=== PATIENT | female | born 1995 | race Caucasian/White ===

== ENCOUNTER 2016-08-19 17:58 | Inpatient (IN) | payer OTHER ==
--- NOTE | ~2016-08-19 | PN ---
Unit #: [id number] #: [id number] Patient: GE DOYLE [id number] [facility] [address] [place] [address] [id number] MR#: [id number] NAME: GE DOYLE ROOM: P116 Age: 21 Sex: F Admission Date: 08/19/2016 : 1995 Attending Physician: Connor Pendleton M.D. Admitting Physician: Connor Pendleton M.D. Primary Care Physician: Primary Care Physician Lupis JAUREGUI NOTES DATE 08/21/2016 DISCUSSION Ms. Doyle is a 21-year-old white female who was seen today and chart was reviewed and case was discussed with the staff. She has been anxious, withdrawn and at times has been seen to be hypermanic episodes and has been showing significant mood swings and instability and has also been noticed to be flirting with other male patients. Meanwhile, she has been taking the medications and tolerating them fairly well with no reported side effects. MENTAL STATUS EXAMINATION Young white female who was casually dressed with fair personal hygiene, appears to be in no acute distress or discomfort. She was awake and alert on interaction with intact orientation. Her mood was anxious with congruent affect. Her speech was fluent and tangent. Her thought processes were disorganized with some looseness of associations and flight of ideas, paranoid ideations and delusional behavior. Her insight and judgement remains significantly impaired. TREATMENT PLAN 1. We will continue her on her current medications and treatment protocol. We will monitor her response to the medication and make further adjustments as needed. 2. We will continue to follow up. Dictated by... Phong Wheeler/raad TD: 08/23/2016 01:24 JOB #: [id number] Unit #: [id number] #: [id number] Patient: GE DOYLE SHANIA NOTES Page 1 of 1 X Connor Pendleton MD PROGRESS NOTE
--- NOTE | ~2016-08-19 | HP ---
Unit #: [id number] #: [id number] Patient: MARY GRACE [id number] [place] [address] [id number] MR#: [id number] NAME: KALEY BRODY ROOM: P116 Age: 21 Sex: F Admission Date: 08/19/2016 : 1995 Attending Physician: Connor Pendleton M.D. Admitting Physician: Connor Pendleton M.D. Primary Care Physician: Primary Care Physician No HISTORY AND PHYSICAL HISTORY OF PRESENT ILLNESS Kaley is a 21 year old admitted to [address] [place] [address] reporting auditory hallucinations. She was admitted to [facility] psychiatric unit a week ago after overdosing on muscle relaxers. She was released on 08/16/16. PAST MEDICAL HISTORY Asthma. PAST SURGICAL HISTORY Nothing reported. ALLERGIES Penicillin, Motrin. SOCIAL HISTORY She denies cigarettes and alcohol. 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 FAMILY HISTORY Medically noncontributory. REVIEW OF SYSTEMS CONSTITUTIONAL: No fever or chills. HEENT: Denies any sore throat, ear pain or runny nose. CARDIOVASCULAR: Denies chest pain, irregular heart rhythm or palpitations. CHEST: Denies shortness of breath or cough. No hemoptysis. GASTROINTESTINAL: Denies nausea, vomiting, diarrhea or chronic constipation. ENDOCRINE: Denies history of increased thirst or urination. No recent significant weight loss or gain. GENITOURINARY: Denies dysuria, frequency, or hematuria. SKIN: Denies any rashes. HEMATOLOGIC: Denies history of increased bleeding or bruising. MUSCULOSKELETAL: Denies any hot, swollen joints. No generalized muscle pain. NEUROLOGIC: Denies problems with vision or speech. No frequent, severe headaches. No numbness, tingling or weakness in any extremities. Denies loss of bladder or bowel control. CURRENT MEDICATIONS 1. Risperdal 1 mg q.h.s. 2. Celexa 20 mg daily. 3. Desyrel 100 mg q.h.s. Unit #: [id number] #: [id number] Patient: MARY GRACE 4. Proventil inhaler p.r.n. 5. Vistaril p.r.n. 6. Milk of Magnesia p.r.n. 7. Maalox p.r.n. 8. Tylenol p.r.n. PHYSICAL EXAMINATION GENERAL: Alert, well-nourished, in no apparent distress. VITAL SIGNS: Blood pressure 124/72, heart rate 100, respirations 16, temperature 98.6. WEIGHT: 150. HEIGHT: 4 feet 11 inches. SKIN: Warm and dry without rash or lesion. HEENT: Normocephalic. TMs not viewed. Oral and nasal passages clear. Conjunctivae clear. PERRLA. EOMs intact. NECK: Supple without lymphadenopathy or thyromegaly. HEART: Regular rate and rhythm without murmur. LUNGS: Clear. ABDOMEN: Soft, nontender. : Not done. EXTREMITIES: No evidence of cyanosis, clubbing or edema. Moves all without focal deficit. NEUROLOGICAL: Unable to complete extended exam. She does move all extremities without focal deficit. Hand deck builder is equal and gait is normal. IMPRESSION Psychiatric admission. RECOMMENDATIONS PSYCHIATRIC: Per psychiatrist. MEDICAL: See no contraindications to participate in facility's activities. MEDICAL PROGNOSIS Good. MEDICAL CONDITION Stable. Dictated by... Lizbeth Luke P.A.-C. for Phong Spann/eder TD: 08/20/2016 18:01 JOB #: [id number] Unit #: [id number] #: [id number] Patient: MARY GRACE HISTORY AND PHYSICAL Page 1 of 1 X Lizbeth Luke X HISTORY AND PHYSICAL
--- NOTE | ~2016-08-19 | PN ---
Unit #: [id number] #: [id number] Patient: GE DOYLE [id number] [facility] [address] [place] [address] [id number] I MR#: [id number] NAME: GE DOYLE ROOM: P110 Age: 21 Sex: F Admission Date: 08/19/2016 : 1995 Attending Physician: Connor Pendleton M.D. Admitting Physician: Connor Pendleton M.D. Primary Care Physician: Primary Care Physician Lupis WARD PROGRESS NOTES DATE 08/22/2016 DISCUSSION Ms. Doyle is a 21-year-old white female with mood disorder who was seen today and chart was reviewed and case was discussed with the staff. She has been anxious, withdrawn though has not shown any agitation, irritability or behavioral problems and appears to be somewhat distracted in elated mood with pressure speech and flight of ideas and exhibiting flirtatious behavior with the male peers. MENTAL STATUS EXAMINATION Young white female who was casually dressed with fair personal hygiene, appears to be in no acute distress or discomfort. She was awake and alert on interaction with intact orientation. Her mood was anxious with congruent affect. She denies any suicidal or homicidal ideations. Her insight and judgement remains slightly impaired. TREATMENT PLAN 1. We will continue her on her current medications and treatment protocol. We will monitor her response to the medication and make further adjustments as needed. 2. We will continue to follow up. Dictated by... Phong Wheeler/raad TD: 08/23/2016 21:51 JOB #: [id number] Unit #: [id number] #: [id number] Patient: GE DOYLE PROGRESS NOTES Page 1 of 1 X Connor Pendleton MD X PROGRESS NOTE
--- NOTE | ~2016-08-19 | DS ---
Unit #: [id number] #: [id number] Patient: GE DOYLE [id number] [facility] [address] [place] [address] [id number] I MR#: [id number] NAME: GE DOYLE ROOM: P110 Age: 21 Sex: F Admission Date: 08/19/2016 : 1995 Discharge Date: 08/24/2016 Attending Physician: Connor Pendleton M.D. Primary Care Physician: Primary Care Physician No DISCHARGE SUMMARY IDENTIFYING DATA Ms. Doyle is a 21-year-old white female, who is a resident of [place], [place] and was referred to us from [place], [place]. DISCHARGE DIAGNOSES Psychiatric: Bipolar disorder, most recent episode depressed, recurrent, moderate, with psychosis. Medical: None. Stressors: Moderate psychosocial stressors. HISTORY OF PRESENT ILLNESS Please see initial psychiatric evaluation for details. PAST PSYCHIATRIC HISTORY Please see initial psychiatric evaluation for details. PAST MEDICAL HISTORY Please see initial psychiatric evaluation for details. HOSPITAL COURSE The patient [facility] and was oriented to the hospital environment. Routine p.r.n. medications were initiated, and she was started back on her home medication initially and upon presentation, she was seen to be exhibiting depression and psychosis and Celexa and Risperdal they were initiated; however, she was then seen to be showing significant mood instability with hypomania like episode, pressured speech, flight of ideas, hyperactivity, and flirtatious behavior; however, she was taking the medications regularly and was tolerating them fairly well and was able to show a decent and therapeutic response with improvement in her anxiety and depression, and was denying any suicidal ideations, intent, or plan and no acute psychosis was noted and as such, it was decided that she will be discharged home and will continue treatment on an outpatient basis. DISCHARGE MEDICATIONS Celexa 20 mg in the morning for depression, and Risperdal 1 mg at bedtime for bipolar. DISCHARGE CONDITION Stable. PROGNOSIS Fair. Unit #: [id number] #: [id number] Patient: GE DOYLE Dictated by... Phong Wheeler/shira TD: 08/24/2016 06:58 JOB #: [id number] DISCHARGE SUMMARY Page 1 of 1 X Connor Pendleton MD DISCHARGE SUMMARY
--- NOTE | ~2016-08-19 | PA ---
Unit #: [id number] #: [id number] Patient: GE DOYLE [id number] [facility] [address] [place] [address] [id number] I MR#: [id number] NAME: GE DOYLE ROOM: P116 Age: 21 Sex: F Admission Date: 08/19/2016 : 1995 Date of Assessment: 08/20/2016 Attending Physician: Connor Pendleton M.D. Admitting Physician: Connor Pendleton M.D. PSYCHIATRIC ASSESSMENT DATE OF SERVICE 08/20/2016. IDENTIFYING DATA Ms. Doyle is a 21-year-old white female, who is a resident of [place], [place] and was referred to us from [place], [place]. CHIEF COMPLAINT "I overdosed on 14 muscle relaxers on last ." HISTORY OF PRESENT ILLNESS Ms. Doyle is a 21-year-old white female, who was transferred to us after she presented to the [place] office stating that she overdosed on 14 muscle relaxers on last and was admitted to [facility], released on Tuesday, but stated that she continues to experience thoughts of suicide and she explained this to the staff at [facility], but they released her anyway and that she endorses auditory and visual hallucinations every night for the last year and reports that she can no longer function with these bad thoughts and is seeking the help that she needs to improve her quality of life. She states that her is in the lobby, but he did not comment on the assessment and the patient states that she thinks that all of her family and friends are drifted away from her due to her mental health issues and she spoke with the father about the voices that she hears and he stopped speaking with her altogether. The patient does report increasing depression, anxiety, irritability, restlessness, feelings of hopelessness and helplessness, and suicidal ideations with intent and plan. SUBSTANCE ABUSE HISTORY The patient reports history of experimentation with methamphetamine as a teenager, but denies any current drug abuse. PAST PSYCHIATRIC HISTORY The patient has had a history of inpatient psychiatric hospitalization at [facility] and a facility in [place]. Currently, she is not active in any treatment program, is not seeing a psychiatrist, is not taking any psychotropic medications. PAST MEDICAL HISTORY No acute or chronic medical illnesses. ALLERGIES Penicillin. Unit #: [id number] #: [id number] Patient: GE DOYLE PERSONAL AND SOCIAL HISTORY A 21-year-old white female, who reports that she is , though she describes herself to be homeless and has poor living situation. MENTAL STATUS EXAMINATION Young white female, who was casually dressed with fair personal hygiene, appears to be in no acute distress or discomfort. She was awake and alert on interaction with intact orientation to time, place, and person. Her mood was anxious and depressed with a congruent affect. Her speech was slow and restricted in content. She reports having suicidal ideation, but denies any homicidal ideations. Her insight and judgment remain significantly impaired. DIAGNOSTIC IMPRESSION Psychiatric: Major depressive disorder, recurrent, moderate, with psychosis. Medical: None. Stressors: Moderate psychosocial stressors. TREATMENT PLAN 1. The patient has presented with history of mood disorder and psychosis and has been decompensating with worsening depression, feelings of hopelessness and suicidal ideations and will need inpatient hospitalization for safety and stabilization. We will recommend initiating antidepressant/antipsychotic combination. 2. Supportive therapy was provided to the patient. ESTIMATED LENGTH OF STAY 5 to 7 days. ABILITY TO HELP SELF Limited. WILLINGNESS TO HELP SELF The patient appears to be willing to help self. STRENGTHS 1. Communicative. 2. Cooperative. PROBLEMS 1. Chronic dysphoric symptoms. 2. Poor social support system. DISCHARGE CRITERIA This will be contingent upon the patient's ability to show resolution of her depression and anxiety and her ability to stay safe to herself, particularly after discharge from the hospital. Dictated by... Phong Wheeler/shira TD: 08/20/2016 06:56 JOB #: [id number] Unit #: [id number] #: [id number] Patient: GE DOYLE PSYCHIATRIC ASSESSMENT Page 1 of 1 X Connor Pendleton MD X PSYCHIATRIC ASSESSMENT
[2016-08-20 12:39] LABS: BASOPHIL% 0.8 % (0-2.5); EOSINOPHIL# 0.2 X10e3 (0-0.7); EOSINOPHIL% 3.9 % (0.0-7.0); HEMATOCRIT 36.2 % (35.0-45.0); HEMOGLOBIN 12.1 gm/dL (12.0-16.0); LYMPHOCYTE% 37.8 % (17.0-45.0); MEAN CELL VOLUME 86.5 FL (83-96); MEAN CORPUSCULAR HEMOGLOBIN 28.9 PG (28-34); MEAN CORPUSCULAR HGB CONC 33.4 g/dL (30-36); MEAN PLATELET VOLUME 8.3 FL (6.5-11.5); MONOCYTE# 0.5 X10e3 (0-1.0); MONOCYTE% 8.6 % (3.0-12.0); NEUTROPHIL# 2.6 X10e3 (1.5-7.1); NEUTROPHIL% 48.9 % (40-75); PLATELET COUNT 271 X10e3 (140-420); RED BLOOD COUNT 4.18 X10e (3.90-5.30); RED CELL DISTRIBUTION WIDTH 12.9 % (11.0-15.5); WHITE BLOOD COUNT 5.3 X10e3 (4.0-10.5)
[2016-08-20 12:46] LABS: DIFF IND NO
[2016-08-20 12:52] LABS: ALBUMIN SERUM 3.9 g/dL (3.5-5.0); BILIRUBIN,TOTAL 0.4 mg/dL (0.2-2.0); CALCIUM SERUM 9.1 mg/dL (8.4-10.2); CREATININE SERUM 0.5 mg/dL (0.6-1.4); GLOM FILT RATE Estimated 139.3 mL/min (>60); POTASSIUM 4.3 mmol/L (3.5-5.1); PROTEIN TOTAL SERUM 6.7 g/dL (6.0-8.3)
[2016-08-20 12:59] LABS: THYROID STIMULATING HORMONE 1.79 uIU/ml (0.34-5.60)
[2016-08-20 13:06] LABS: FREE THYROXIN (T4) 0.6 ng/dL (0.58-1.64)
== END 2016-08-24 10:45 | disposition home or self-care (01) | DRG 885 ==
LOC: P1S 17:58
PROVIDERS: Psychiatry & Neurology Psychiatry
DX: F33.1 Major depressive disorder, recurrent, moderate (principal); F29 Unspecified psychosis not due to a substance or known physiological condition; R45.851 Suicidal ideations; Z59.0 Homelessness; F41.9 Anxiety disorder, unspecified; J45.909 Unspecified asthma, uncomplicated; Z88.6 Allergy status to analgesic agent; Z88.0 Allergy status to penicillin; I10 Essential (primary) hypertension; K21.9 Gastro-esophageal reflux disease without esophagitis; G40.909 Epilepsy, unspecified, not intractable, without status epilepticus; F17.210 Nicotine dependence, cigarettes, uncomplicated; Z91.030 Bee allergy status; Z91.018 Allergy to other foods
CPT/HCPCS: 80053; 84439; 84443; 84703; 85025